=== PATIENT | female | born 1945 | race Caucasian/White ===

== ENCOUNTER 2019-10-19 08:45 | Day surgery (SDC) | payer OTHER ==
[~2019-10-19] VITALS: Ht 154.9 cm; Wt 86.2 kg
[2019-10-19 09:20] VITALS: BP 151/90
[2019-10-19 13:02] VITALS: BP 158/59
== END 2019-10-19 12:10 | disposition home or self-care (01) ==
LOC: DS 08:45 → OR 16:30
DX: M25.662 Stiffness of left knee, not elsewhere classified (principal); E66.3 Overweight; E03.9 Hypothyroidism, unspecified; E78.00 Pure hypercholesterolemia, unspecified; Z79.899 Other long term (current) drug therapy; Z68.36 Body mass index [BMI] 36.0-36.9, adult; Z79.82 Long term (current) use of aspirin; Z90.710 Acquired absence of both cervix and uterus; Z78.0 Asymptomatic menopausal state; Z98.890 Other specified postprocedural states
CPT/HCPCS: J2704; J3010; J7030